=== PATIENT | male | born 1985 | race Hispanic/Latino ===

== ENCOUNTER 2017-10-11 10:44 | Outpatient (CLI) | payer OTHER ==
--- NOTE | 2017-10-11 16:29 | Ultrasound Report ---
THYROID ULTRASOUND:10/11/17 10:44:00 CLINICAL: Neck pain. FINDINGS: High-resolution ultrasound demonstrated a normal size thyroid with normal overall echogenicity. The right lobe measures 4.4 x 1.7 x 1.5cm. The left lobe measures 4.4 x 1.3 x 1.5. The isthmus measures 3 mm AP thickness. No thyroid nodule or cyst. No neck mass or lymphadenopathy. No fluid collection. IMPRESSION: Normal thyroid and no neck mass or lymphadenopathy.
== END 2017-10-11 10:45 | disposition home or self-care (01) ==
LOC: SPVWC 10:44
DX: M54.2 Cervicalgia (principal)
CPT/HCPCS: 76536